=== PATIENT | female | born 1955 | race Caucasian/White ===

== ENCOUNTER 2017-11-20 05:23 | Inpatient (IN) | payer OTHER ==
[~2017-11-20] VITALS: Ht 160 cm; Wt 77.3 kg
[~2017-11-20 05:23] MED LIST: DULO30CA2 PO; LISI-661 PO; PANT40TA25 PO
[2017-11-20] MEDS ORDERED: RINGERS SOLUTION,LACTATED 1,000 ML IV ONE ×4 (05:31→07:02)
[2017-11-20] MEDS ORDERED: SODIUM CHLORIDE 0.9% 10 ML ONE (06:35)
[2017-11-20] MEDS ORDERED: SODIUM CL IRRIG SOLN BAG 3,000 ML IRRIG ONE (06:35)
[2017-11-20] MEDS ORDERED: SODIUM CHLORIDE 0.9% 100 ML ONE ×2 (06:35→08:02)
[2017-11-20] MEDS ORDERED: BUPIVACAINE HCL/PF 0.5% 30 ML VIAL ONE (06:35)
[2017-11-20] MEDS ORDERED: BACITRACIN 50,000 UNITS/VIAL ONE (06:36)
[2017-11-20] MEDS ORDERED: TRANEXAMIC ACID 1,000 MG in DEXTROSE 5%-WATER 50 ML IV ONE (07:00)
[2017-11-20] MEDS ORDERED: BUPIVACAINE LIPOSOME/PF 1.3%-13.3MG/ML SUSPENSION 20 ML VIAL INJ ONE (07:00)
[2017-11-20] MEDS ORDERED: VANCOMYCIN HCL 1 GM/VIAL ONE (08:02)
[2017-11-20] MEDS ORDERED: POVIDONE-IODINE 30 GM OINTMENT TP ONE (09:11)
[2017-11-20] MEDS ORDERED: BACITRACIN 28.4 GM OINTMENT TP ONE (09:11)
[2017-11-20] MEDS ORDERED: MEPERIDINE-PF 25 MG/ML SYRINGE IVP PRN (09:45)
[2017-11-20] MEDS ORDERED: ONDANSETRON HCL 4 MG/2 ML VIAL IVP PRN (09:45)
[2017-11-20] MEDS ORDERED: DiphenhydrAMINE HCL 50 MG/ML VIAL IVP PRN (09:45)
[2017-11-20] MEDS ORDERED: FentaNYL CITRATE-PF 100 MCG/2 ML VIAL IVP PRN ×2 (09:45)
[2017-11-20] MEDS ORDERED: MEPERIDINE HCL/PF 25 MG/0.5 ML AMP IVP PRN (09:45)
[2017-11-20] MEDS ORDERED: BISACODYL 10 MG RECTAL RECTAL SUPPOSITORY PR PRN (09:45)
[2017-11-20] MEDS ORDERED: 0.9% SODIUM CHLORIDE 10 ML SYRINGE IVP PRN (09:45)
[2017-11-20] MEDS ORDERED: HYDROmorphone 2 MG/ML SYRINGE IVP PRN ×2 (09:45)
[2017-11-20] MEDS ORDERED: MAG HYDROX/AL HYDROX/SIMETH 30 ML SUSP UDCUP PO PRN (09:45)
[2017-11-20] MEDS ORDERED: BENZOCAINE/MENTHOL LOZENGE PO PRN (09:45)
[2017-11-20] MEDS: KETOROLAC TROMETHAMINE 15 MG/ML VIAL IVP SCH ×2 (11:21→18:36)
[2017-11-20 11:29] VITALS: BP 150/72
[2017-11-20 16:47] VITALS: BP 125/79
[2017-11-20] MEDS: ACETAMINOPHEN 1000 MG/ISO-OSM 100 ML IV SCH ×2 (16:50→22:18)
[2017-11-20] MEDS: SODIUM CHLORIDE 0.45% 1,000 ML IV SCH ×2 (18:30→20:53)
[2017-11-20] MEDS: VANCOMYCIN HCL 1 GM/D5% WATER 200 ML IV SCH (18:40)
[2017-11-20 19:35] VITALS: BP 135/75
[2017-11-20] MEDS: OXYGEN THERAPY IH SCH (20:00)
[2017-11-20] MEDS: CYCLOBENZAPRINE HCL 10 MG TABLET PO SCH (20:52)
[2017-11-20] MEDS: DOCUSATE SODIUM 100 MG CAPSULE PO SCH (20:52)
[2017-11-20 23:45] VITALS: BP 131/76
[2017-11-21] MEDS: KETOROLAC TROMETHAMINE 15 MG/ML VIAL IVP SCH ×4 (00:05→18:30)
[2017-11-21] MEDS: ACETAMINOPHEN 1000 MG/ISO-OSM 100 ML IV SCH ×3 (02:43→15:30)
[2017-11-21 04:00] VITALS: BP 145/62
[2017-11-21] MEDS ORDERED: KETOROLAC TROMETHAMINE 60 MG/2 ML VIAL IM ONE (04:59)
[2017-11-21] MEDS ORDERED: LIDOCAINE HCL/PF 2% 5 ML VIAL IM ONE (04:59)
[2017-11-21] MEDS ORDERED: EPHEDrine SULFATE 50 MG/ML VIAL IM ONE (04:59)
[2017-11-21] MEDS ORDERED: PHENYLEPHRINE HCL 10 MG/ML VIAL IVP ONE (04:59)
[2017-11-21] MEDS ORDERED: MIDAZOLAM HCL 2 MG/2 ML VIAL IVP ONE (04:59)
[2017-11-21] MEDS ORDERED: KETAMINE HCL 50 MG/ML 10 ML VIAL IVP ONE (04:59)
[2017-11-21] MEDS ORDERED: DEXAMETHASONE SOD PHOS 4 MG/ML VIAL IVP ONE (04:59)
[2017-11-21] MEDS ORDERED: PROPOFOL 1% 20 ML VIAL IVP ONE (04:59)
[2017-11-21] MEDS: VANCOMYCIN HCL 1 GM/D5% WATER 200 ML IV SCH (06:08)
[2017-11-21 06:14] LABS: EOSINOPHILS % (AUTO) 0 % (1.0-6.0); HEMATOCRIT 31.5 % (36-46); HEMOGLOBIN 10.9 g/dL (12.0-16.0); LYMPHOCYTES # (AUTO) 1.2 K/uL (1.0-4.8); MEAN CORPUSCULAR HEMOGLOBIN 30.2 pg (26.0-34.0); MEAN CORPUSCULAR HGB CONC 34.5 G/dL (31.0-37.0); MEAN CORPUSCULAR VOLUME 88 fL (80-100); MONOCYTES # (AUTO) 0.9 K/uL (0.1-1.0); MONOCYTES % (AUTO) 4.9 % (2.0-9.0); NEUTROPHILS # (AUTO) 15.4 K/uL (1.8-7.7); PLATELET COUNT (AUTO) 413 K/uL (150-450); RED CELL DISTRIBUTION WIDTH 13.5 % (11.5-14.5)
[2017-11-21 06:31] LABS: ANION GAP 9 mmol/L (8-16); CALCIUM, TOTAL 9.2 mg/dL (8.8-10.5); CARBON DIOXIDE 25 mmol/L (22-29); CHLORIDE 103 mmol/L (98-107); CREATININE 0.86 mg/dL (0.60-1.30); GLOMERULAR FILTR. RATE CALC > 60 mL/min (>60); GLUCOSE,RANDOM 123 mg/dL (70-110); POTASSIUM 4.1 mmol/L (3.5-5.1); SODIUM SERUM 137 mmol/L (136-145); UREA NITROGEN, BLOOD 10 mg/dL (7-18)
[2017-11-21 06:42] LABS: NEUTROPHILS % (AUTO) 88.1 % (40.0-70.0)
[2017-11-21 08:00] VITALS: BP 133/77
[2017-11-21] MEDS: OXYGEN THERAPY IH SCH (08:00)
[2017-11-21] MEDS: DULoxetine HCL 30 MG CAPSULE PO SCH (08:56)
[2017-11-21] MEDS: DOCUSATE SODIUM 100 MG CAPSULE PO SCH ×2 (08:56→20:24)
[2017-11-21] MEDS: LISINOPRIL 10 MG TABLET PO SCH (08:57)
[2017-11-21] MEDS: CYCLOBENZAPRINE HCL 10 MG TABLET PO SCH ×2 (08:57→20:25)
[2017-11-21] MEDS: PANTOPRAZOLE SODIUM 40 MG DR TABLET PO SCH (08:57)
[2017-11-21] MEDS ORDERED: RIVAROXABAN 10 MG TABLET PO SCH (09:00)
[2017-11-21 11:20] VITALS: BP 132/72
[2017-11-21 15:35] VITALS: BP 127/74
[2017-11-21] MEDS: SODIUM CHLORIDE 0.45% 1,000 ML IV SCH (18:30)
[2017-11-21 20:13] VITALS: BP 141/71
[2017-11-21] MEDS: OxyCODONE HCL/ACETAMINOPHEN 10-325 MG TABLET PO PRN (20:24)
[2017-11-22] MEDS: KETOROLAC TROMETHAMINE 15 MG/ML VIAL IVP SCH ×3 (00:05→12:15)
[2017-11-22 00:22] VITALS: BP 121/64
[2017-11-22 04:00] VITALS: BP 137/82
[2017-11-22 06:20] LABS: BASOPHILS % (AUTO) 0.4 % (0.0-2.0); HEMOGLOBIN 10.9 g/dL (12.0-16.0); LYMPHOCYTES # (AUTO) 2.6 K/uL (1.0-4.8); LYMPHOCYTES % (AUTO) 25.8 % (22.0-44.0); MEAN CORPUSCULAR HGB CONC 35.1 G/dL (31.0-37.0); MEAN CORPUSCULAR VOLUME 88 fL (80-100); MONOCYTES # (AUTO) 0.8 K/uL (0.1-1.0); MONOCYTES % (AUTO) 7.8 % (2.0-9.0); NEUTROPHILS # (AUTO) 6.6 K/uL (1.8-7.7); PLATELET COUNT (AUTO) 341 K/uL (150-450); RED BLOOD CELL COUNT(AUTO) 3.52 MIL/uL (4.00-5.20); RED CELL DISTRIBUTION WIDTH 13.9 % (11.5-14.5)
[2017-11-22 07:40] VITALS: BP 128/58
[2017-11-22] MEDS: DULoxetine HCL 30 MG CAPSULE PO SCH (08:52)
[2017-11-22] MEDS: DOCUSATE SODIUM 100 MG CAPSULE PO SCH (08:52)
[2017-11-22] MEDS: PANTOPRAZOLE SODIUM 40 MG DR TABLET PO SCH (08:52)
[2017-11-22] MEDS: LISINOPRIL 10 MG TABLET PO SCH (08:53)
[2017-11-22] MEDS: OxyCODONE HCL/ACETAMINOPHEN 10-325 MG TABLET PO PRN (08:53)
[2017-11-22] MEDS: CYCLOBENZAPRINE HCL 10 MG TABLET PO SCH (08:53)
[2017-11-22 11:20] VITALS: BP 117/66
== END 2017-11-22 17:07 | DRG 301 ==
LOC: 4E 05:23
PROVIDERS: ADMIT Orthopaedic Surgery; ATTEND Orthopaedic Surgery
PROC: 0SR904Z Replacement of Right Hip Joint with Ceramic on Polyethylene Synthetic Substitute, Open Approach (ICD-10-PCS; principal; 2017-11-22)
DX: M16.11 Unilateral primary osteoarthritis, right hip (principal); F32.9 Major depressive disorder, single episode, unspecified; E78.00 Pure hypercholesterolemia, unspecified; F12.90 Cannabis use, unspecified, uncomplicated; K21.9 Gastro-esophageal reflux disease without esophagitis; G89.29 Other chronic pain; Z88.8 Allergy status to other drugs, medicaments and biological substances
CPT/HCPCS: 72170; 87081; 88300; 97110; 97116; 97162; 97166; 97530; C9290; G0238; J0131; J1100; J1885; J2250; J2370; J2405; J2704; J3370; J3490; J7050; J7060; J7120